=== PATIENT | male | born 1995 | race Caucasian/White ===

== ENCOUNTER 2018-12-06 22:42 | Emergency (ER) | payer SELFPAY ==
[2018-12-06 23:43] LABS: HEMATOCRIT 40.8 % (37.9-51.0); HEMOGLOBIN 13.9 g/dL (13.5-17.0); MEAN CORPUSCULAR HEMOGLOBIN 27.7 pg (27.0-33.4); MEAN CORPUSCULAR HGB CONC 34.1 g/dL (32.0-36.0); MEAN CORPUSCULAR VOLUME 81 fl (80-97); PLATELET COUNT 143 10^3/uL (150-450); RED BLOOD COUNT 5.04 10^6/uL (4.35-5.55); RED CELL DISTRIBUTION WIDTH 13.8 % (11.5-14.0); WHITE BLOOD COUNT 3.9 10^3/uL (4.0-10.5)
[2018-12-06 23:54] LABS: A TYPE INFLUENZA AG NEGATIVE (NEGATIVE); ALANINE AMINOTRANSFERASE 100 U/L (21-72); ALBUMIN 3.5 g/dL (3.5-5.0); ALKALINE PHOSPHATASE 149 U/L (38-126); ANION GAP 10 (5-19); ASPARTATE AMINO TRANSFERASE 91 U/L (17-59); B INFLUENZA AG NEGATIVE (NEGATIVE); BILIRUBIN,DIRECT 0.4 mg/dL (0.0-0.4); BILIRUBIN,TOTAL 0.8 mg/dL (0.2-1.3); BLOOD UREA NITROGEN 8 mg/dL (7-20); CALCIUM 8.7 mg/dL (8.4-10.2); CARBON DIOXIDE 25 mmol/L (22-30); CHLORIDE 99 mmol/L (98-107); GLUCOSE 119 mg/dL (75-110); POTASSIUM 3.8 mmol/L (3.6-5.0); SODIUM 133.8 mmol/L (137-145); TOTAL PROTEIN 6.4 g/dL (6.3-8.2)
[2018-12-07 00:02] LABS: ABSOLUTE MONOCYTES # (MANUAL) 0.2 10^3/uL (0.1-1.4); ABSOLUTE NEUTROPHILS# (MANUAL) 2.6 10^3/uL (1.7-8.2); BASOPHILS % (MANUAL) 0 % (0-2); EOSINOPHILS % (MANUAL) 1 % (0-6); LYMPHOCYTES % (MANUAL) 22 % (13-45); MONOCYTES % (MANUAL) 6 % (3-13); SEGMENTED NEUTROPHILS % (MAN) 67 % (42-78); TOTAL CELLS COUNTED 100
[2018-12-07 00:03] LABS: PLATELET COMMENT DECREASED
[2018-12-07 00:05] LABS: RBC MORPHOLOGY COMMENT NORMO-CYTIC/CHROMIC
[2018-12-07 00:31] LABS: APPEARANCE,URINE CLEAR; BILIRUBIN,URINE NEGATIVE (NEGATIVE); COLOR,URINE YELLOW; GLUCOSE, URINE NEGATIVE (NEGATIVE); KETONES,URINE NEGATIVE (NEGATIVE); LEUKOCYTE ESTERASE,URINE NEGATIVE (NEGATIVE); NITRITE,URINE NEGATIVE (NEGATIVE); PROTEIN,URINE 30 mg/dL (NEGATIVE); URINE SPECIFIC GRAVITY 1.012; UROBILINOGEN,URINE NEGATIVE mg/dL (<2.0)
[2018-12-07 01:44] VITALS: BP 109/56
--- NOTE | 2018-12-07 08:26 | ER Document Report ---
Entered by MILLY ARANGO SCRIBE 12/06/18 0607 Acting as scribe for:SHRUTI OSHEA DO ED General - General Chief Complaint: Fever Stated Complaint: FEVER Time Seen by Provider: 12/06/18 22:52 Notes: Patient is a 23-year-old male who presents to the emergency department today with complaints of fevers for the last few days along with associated lightheadedness, dizziness, feeling dehydrated, headache, throat pain, ear pain, and slight upper abdominal pain. Patient states he was seen in an urgent care prior to arrival and was told he had protein and blood in his urine. Patient states he was diagnosed with "allergies". Patient states his sweat smells like "ammonia". Patient denies any cough, nausea, vomiting, or diarrhea. TRAVEL OUTSIDE OF THE [place] IN LAST 30 DAYS: No - Related Data Allergies/Adverse Reactions: No Known Allergies Allergy (Verified 05/05/16 01:31) Past Medical History - General Information source: Patient - Social History Smoking Status: Never Smoker Chew tobacco use (# tins/day): Yes Frequency of alcohol use: Occasional Family History: Reviewed & Not Pertinent Patient has suicidal ideation: No Patient has homicidal ideation: No - Immunizations Hx Diphtheria, Pertussis, Tetanus Vaccination: No Hx Pneumococcal Vaccination: 07/30/15 Review of Systems - Review of Systems Constitutional: See HPI, Diaphoresis EENT: See HPI, Ear pain, Sinus pressure Cardiovascular: See HPI, Dizziness Respiratory: No symptoms reported Gastrointestinal: See HPI, Nausea Genitourinary: No symptoms reported Male Genitourinary: No symptoms reported Musculoskeletal: See HPI, Muscle pain Skin: No symptoms reported Hematologic/Lymphatic: No symptoms reported Neurological/Psychological: See HPI, Headaches -: Yes All other systems reviewed and negative Physical Exam - Vital signs Vitals: Pulse BP Pulse Ox 95 131/67 H 99 12/06/18 22:47 12/06/18 22:47 12/06/18 22:47 Interpretation: No: Tachycardic - Notes Notes: PHYSICAL EXAM GENERAL: Alert, interacts well. No acute distress. HEAD: Face is somewhat puffy, Normocephalic, atraumatic. EYES: Pupils equal, round, and reactive to light. Extraocular movements intact. ENT: Turbinate edema bilaterally, post nasal drainage, clear rhinorrhea bilaterally, oral mucosa moist, tongue midline. Nares patent, no nasal septal hematoma, TM's intacts. NECK: Full range of motion. Supple. Trachea midline. LUNGS: Clear to auscultation bilaterally, no wheezes, rales, or rhonchi. No respiratory distress. HEART: Regular rate and rhythm. No murmurs, gallops, or rubs. ABDOMEN: Soft, non-tender. Non-distended. Bowel sounds present in all 4 quadrants. No guarding, rigidity, or rebound. EXTREMITIES: Moves all 4 extremities spontaneously. No edema, radial and dorsalis pedis pulses 2/4 bilaterally. No cyanosis. NEUROLOGICAL: Alert and oriented x3. Normal speech. PSYCH: Normal affect, normal mood. SKIN: Diaphoretic, warm, No rashes or lesions noted. Course - Re-evaluation Re-evalutation: 12/07/18 01:23 CBC shows slight leukopenia with white count of 3.9, platelets slightly low 143 otherwise unremarkable, CMP shows slight low sodium at 133.8, AST elevated ALT 91, ALT 100, alkaline phosphatase 149, ammonia undetectable, urinalysis shows 30 of protein but no glucose, ketones or signs of blood or infection. Harrison test is negative, influenza swabs are negative, hepatitis panel is pending. This was ordered based off of his elevated LFTs. Currently patient appears to have a nonspecific viral syndrome, counseled to take ibuprofen for his fever, avoid Tylenol as much as possible, not to drink alcohol and to follow-up with his primary care physician if his fever persists for more than 10 days total. Also encouraged to follow-up of his liver enzymes rechecked in 1 week. Discharge to home with prescription for nasal steroids for the turbinate edema and fluid behind his tympanic membranes. - Vital Signs Vital signs: Temp Pulse Resp BP Pulse Ox 98.0 F 67 18 109/56 L 98 12/07/18 01:43 12/07/18 01:43 12/07/18 01:43 12/07/18 01:43 12/07/18 01:43 - Laboratory Result Diagrams: 12/06/18 23:28 12/06/18 23:28 Laboratory results interpreted by me: 12/06/18 12/06/18 12/06/18 23:28 23:28 23:28 WBC 3.9 L Plt Count 143 L Sodium 133.8 L Glucose 119 H AST 91 H ALT 100 H Alkaline Phosphatase 149 H Ammonia < 8.7 L Urine Protein 12/07/18 00:16 WBC Plt Count Sodium Glucose AST ALT Alkaline Phosphatase Ammonia Urine Protein 30 H Discharge - Discharge Clinical Impression: Viral syndrome, Elevated LFTs, Viral upper respiratory tract infection Condition: Stable Disposition: HOME, SELF-CARE Additional Instructions: Please use the Flonase which is a nasal steroid 1 squirt per nostril twice a day. Please take ibuprofen 800 mg every 8 hours as needed for pain or fever. You may also use acetaminophen up to 1000 mg every 6 hours as needed for pain or fever however your liver enzymes were elevated today so please only use the acetaminophen when absolutely necessary. Please do not drink any alcohol until you are rechecked by your primary care physician. I would like you to have your liver enzymes checked in the next 1 to 2 weeks. We have ordered a hepatitis panel to look for signs of liver infection. We will call these results to you, if you have not heard from us by Sunday please call our culture nurse Maria A Carr at [phone]. Prescriptions: Fluticasone Propionate [Flonase Nasal [place] 50 Mcg/[place]cy 16 gm] 1 spray NASL Q12 #1 inhaler Forms: Return to Work I personally performed the services described in the documentation, reviewed and edited the documentation which was dictated to the scribe in my presence, and it accurately records my words and actions.
[2018-12-08 09:36] LABS: HEPATITIS A AB IGM Negative (Negative); HEPATITIS B CORE AB IGM Negative (Negative); HEPATITS B SURFACE ANTIGEN Negative (Negative)
[2018-12-08 12:28] LABS: HEPATITIS C VIRUS ANTIBODY <0.1 s/co ratio (0.0-0.9)
== END 2018-12-07 01:44 | disposition home or self-care (01) ==
LOC: ER 22:42
DX: J06.9 Acute upper respiratory infection, unspecified (principal); B34.9 Viral infection, unspecified; R94.5 Abnormal results of liver function studies; M79.10 Myalgia, unspecified site; R50.9 Fever, unspecified; R42 Dizziness and giddiness; R61 Generalized hyperhidrosis; R10.10 Upper abdominal pain, unspecified; R51 Headache; H92.09 Otalgia, unspecified ear; R11.0 Nausea
CPT/HCPCS: 36415; 80053; 80074; 81001; 82140; 85025; 86308; 87804; 99283